=== PATIENT | female | born 1985 | race Caucasian/White ===

== ENCOUNTER 2017-04-02 23:56 | Emergency (ER) | payer SELFPAY ==
[~2017-04-02] VITALS: Ht 160 cm; Wt 55.9 kg
[2017-04-03 00:36] VITALS: Ht 160 cm; Wt 55.9 kg
[2017-04-03] MEDS ORDERED: ACET500C5 PO (01:29)
[2017-04-03] MEDS ORDERED: HYDR-906 PO (01:29)
[2017-04-03] MEDS ORDERED: CYCL-319 PO (01:29)
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
== END 2017-04-03 02:00 | disposition home or self-care (01) ==
LOC: FTE 23:56
DX: S29.012A Strain of muscle and tendon of back wall of thorax, initial encounter (principal); S00.03XA Contusion of scalp, initial encounter; S16.1XXA Strain of muscle, fascia and tendon at neck level, initial encounter; F17.210 Nicotine dependence, cigarettes, uncomplicated; V49.49XA Driver injured in collision with other motor vehicles in traffic accident, initial encounter
CPT/HCPCS: 99284